=== PATIENT | male | born 1965 | race Caucasian/White ===

== ENCOUNTER → 2017-12-05 10:16 | Outpatient (CLI) | payer MEDICARE, SELFPAY ==
[2017-12-05 11:15] LABS: Hemoglobin A1C 6.5 % (0.0-7.0)
[2017-12-05 11:35] LABS: Alanine Aminotransferase 37 U/L (12-78); Albumin Level 3.8 gm/dL (3.4-5.0); Albumin/Globulin Ratio 0.9 (1.1-1.8); Alkaline Phosphatase 122 U/L (46-116); Anion Gap 13.5 mEq/L (5-15); Aspartate Amino Transferase 17 U/L (15-37); Bilirubin,Total 0.3 mg/dL (0.2-1.0); Blood Urea Nitrogen 13 mg/dL (7-18); Carbon Dioxide 28 mmol/L (21.0-32.0); Chloride 101 mmol/L (98-107); Cholesterol 134 mg/dL (140-200); Creatinine,Serum 1.09 mg/dL (0.70-1.30); Estimated Glomerular Filt Rate 71 ml/min (>60); GFR (African American) 86 ML/MIN (>60); Globulin 4.3 gm/dl (1.3-3.2); Glucose 124 mg/dL (74-106); HDL Cholesterol 44 mg/dL (27-67); LDL Cholesterol 71 mg/dL (0-130); Potassium 4.5 mmoL/L (3.5-5.1); Sodium 138 mmol/L (136-145); Total Protein,Serum 8.1 gm/dL (6.4-8.2); Triglycerides 97 mg/dL (30-200); VLDL Cholesterol 19 mg/dL (0-40)
== END ==
PROVIDERS: Visit Provider Physician Assistant
DX: E11.9 Type 2 diabetes mellitus without complications (principal); E78.2 Mixed hyperlipidemia; I10 Essential (primary) hypertension
CPT/HCPCS: 36415; 80053; 80061; 83036

== ENCOUNTER → 2019-10-01 10:13 | Outpatient (CLI) | payer MEDICARE, SELFPAY ==
[2019-10-01 12:34] LABS: Coronavirus 19 IgG Antibody Negative (Negative); Coronavirus 19 IgM Antibody Negative (Negative)
== END ==
PROVIDERS: Visit Provider Surgery
DX: Z01.818 Encounter for other preprocedural examination (principal)
CPT/HCPCS: 36415; 86328

== ENCOUNTER 2019-10-02 09:21 | Day surgery (SDC) | payer MEDICARE, SELFPAY ==
[2019-09-30 11:07] VITALS: BMI 43.8
[2019-10-02 09:44] VITALS: BP 141/71; PULSE 99; RESP 16; TEMP 36.9; O2SAT 96
[2019-10-02 10:07] LABS: POC Glucose,Bedside 129 (70-110)
[2019-10-02 11:30] VITALS: O2SAT 96
--- NOTE | 2019-10-02 11:42 | HMH.ANESCL ---
[facility] Anesthesia Checklist - Patient Identification Patient Identification: Arm Band, Verbal (Name & ) - Structural Data Admitted From: Home Planned Operative Procedure/s: colonoscopy Consent for Planned Operative Procedure(s) Verified: Yes Verified Documents: Surgical Consent, History and Physical - NPO Status Verified Time NPO: 00:00 - Chart Verification Results Verified: None - Additional verifications Fingerstick Blood Glucose: 129 Anesthesia Reactions: No - Airway Assessment C-Spine Mobility Assessed: Yes TMJ Mobility Assessed: Yes Dentition: Edentulous (Full dentures removed) - Neurological Assessment Level of Consciousness: Awake, Alert, Appropriate, Follows Commands Hx Seizures: No Numbness or tingling in extremities: No - Anesthesia Plan Anesthesia Risk discussed: Yes Anesthesia Plan: Verified ASA Class: III Anesthesia Type: MAC [facility] History I have reviewed the patient's past medical history: Yes Medical History: Reports:: Anxiety, Asthma, Diabetes Mellitus Type 2, Gastroesophageal Reflux Disease(GERD), Hyperlipidemia, Hypertension, Lung Disease Denies:: Cancer, Diabetes Mellitus Type 1, Internal Pacemaker, MRSA, Seizures *Have you ever received a pneumonia vaccine?: No *Have you received a flu vaccine this season?: Yes Other Medical History: Reports: Other Comment:: morbid obesity Anesthesia experience/problems:: None Other Surgeries: Yes: Colonoscopy. No: Pacemaker Amputation: No Fractures: No - *Social History Smoking Status: Never smoker Alcohol Intake: never Alcohol Intake Frequency:: a few times a month Substance Use Type: denies use *Occupational Status:: disabled Housing: house Household Members: spouse *Travel in the last 8 weeks: None - Psychiatric History Pschychiatric History:: Reports:: Anxiety Family Hx:: No significant family history
[2019-10-02 12:22] VITALS: BP 87/43; PULSE 94; RESP 18; TEMP 36.4; O2SAT 93
--- NOTE | 2019-10-02 12:28 | HMH.SCOPE ---
- Procedure: Date: 10/02/19 Procedure Performed:: Colonoscopy with polypectomy Indications:: History of colon polyps Diverticulosis Performing Provider:: [place] Kathleen MD Referring Provider:: . Sedation:: Monitored anesthesia care Procedure:: After informed consent was obtained the patient was taken to the endoscopy suite. Sedation ensued after the patient was transferred to the left lateral decubitus position. Pulse, blood pressure, and oxygen saturation were monitored throughout the procedure. Digital rectal exam revealed no significant abnormality. The colonoscope was placed in position. The entire colon was evaluated. The colonoscope was carefully removed and the patient was transferred to recovery in stable condition. Please see findings and specimens below for detail. Findings:: Bowel preparation moderate (somewhat improved versus prior colonoscopy) Severe lack of relaxation (very patulous colon...specifically sigmoid) Scattered diverticulosis Polyps (see specimens) Specimens:: Adjacent polyps at 65 cm (snare) Sessile 8 mm polyp at 60 cm (snare) Polyp at 45 cm (snare) Recommendations:: Timing of repeat colonoscopy is pending pathology. He will continue to need fairly short-term repeat evaluation (1-2 years) secondary to persistent limitations in visualization. Although bowel preparation somewhat improved, severe lack of relaxation and patulous nature of colon continue to create some limitations. Complications:: No immediate Estimated blood obtained (mL): 1
[2019-10-02 12:32] VITALS: BP 106/72; PULSE 104; RESP 20; TEMP 36.4; O2SAT 20
[2019-10-02 12:48] VITALS: BP 118/70; PULSE 96; RESP 20; TEMP 36.4; O2SAT 97
== END 2019-10-02 12:48 | disposition home or self-care (01) ==
LOC: OUTP 09:23
PROVIDERS: PCP Family Medicine; Visit Provider Surgery
PROC: 0DJD8ZZ Inspection of Lower Intestinal Tract, Via Natural or Artificial Opening Endoscopic (ICD-10-PCS; CPT 45385; principal; 2019-10-02 10:30)
DX: Z12.11 Encounter for screening for malignant neoplasm of colon (principal); Z86.010 Personal history of colon polyps; K63.5 Polyp of colon; K57.30 Diverticulosis of large intestine without perforation or abscess without bleeding; J45.909 Unspecified asthma, uncomplicated; E11.9 Type 2 diabetes mellitus without complications; F41.9 Anxiety disorder, unspecified; K21.9 Gastro-esophageal reflux disease without esophagitis; I10 Essential (primary) hypertension; E78.5 Hyperlipidemia, unspecified; Z79.84 Long term (current) use of oral hypoglycemic drugs; Z79.899 Other long term (current) drug therapy; Z79.82 Long term (current) use of aspirin
CPT/HCPCS: 45385; 82962; 88305; J2704